=== PATIENT | female | born 1985 | race Caucasian/White ===

== ENCOUNTER → 2025-04-14 13:53 | Outpatient (REF) | payer OTHER, SELFPAY | LOC: HWRAD 13:53 | PROVIDERS: ATTENDING PHYSICIAN Nurse Practitioner Adult Health; FAMILY PHYSICIAN Internal Medicine | DX: R20.2 Paresthesia of skin (principal); R52 Pain, unspecified | CPT/HCPCS: 72100; 72220 ==